=== PATIENT | male | born 1970 | race Caucasian/White ===

== ENCOUNTER 2019-07-30 15:08 | Emergency (ER) | payer OTHER, SELFPAY ==
[2019-07-30 15:09] VITALS: BP 123/90; PULSE 102; RESP 18; TEMP 36.8; O2SAT 96; BMI 27.9
--- NOTE | 2019-07-30 15:24 | ED.DCSUM_ITS ---
History of Present Illness Chief Complaint: Other, Pain/Inj Detail of Chief Complaint: Swelling lower lip right side Informant: Patient, Family Onset: Days - Onset July 27 Context: Sudden Onset Timing: Continuous Quality: Pain and swelling Location: Lower lip right side and face Current Severity: Moderate Maximum Severity: Severe Worsened by: Worse with palpation Relieved by: Nothing Associated Symptoms: Pain and swelling no constitutional symptoms Narrative: Patient is a 48-year-old male with history of diabetes who presents because of swelling of his lower lip and right side of his face. Onset was July 27. He states he had a cold sore. He was seen yesterday at outside facility and placed on clindamycin 300 mg. He states he has been compliant with the medication. He denies fever, chills or night sweats. He denies inability to open or close his mouth. He does report change in voice because of the swelling. He is able to swallow and has no breathing issues. He states his blood sugars have not been elevated. He denies symptoms of hyperglycemia. He denies history rheumatic fever, heart murmur, SBE or being immune suppressed. Prior similar symptoms: No Recent Illness/Hospitalization: Yes - Past Medical History (1) History of diabetes mellitus Status: Acute Past Medical History - Allergies and Home Meds Allergies/Adverse Reactions: Allergies morphine Allergy (Verified 07/30/19 15:11) Emmy Primary Care Physician: NOT,DEFINED [NON-STAFF] - Prior records reviewed: No Surgical History: no surgical history Lives: With Family Smoking Status: Current every day smoker Alcohol: None Drugs: None Review of Systems General: Denies: Chills, Fever, Malaise, Sweats Eyes: Denies: Visual changes - bilaterally, Blurred Vision - bilaterally ENT: Reports: - - Pain of lower lip as previously described. Denies: Bilateral ear pain, Rhinorrhea, Sore throat Cardiovascular: Denies: Chest pain, Palpitations Respiratory: Denies: Dyspnea, Cough, Dyspnea on exertion Gastrointestinal: Denies: Nausea, Vomiting, Diarrhea Genitourinary: Denies: Dysuria, Hematuria, Frequency Musculoskeletal: Denies: Myalgias, Arthralgias, Neck pain, Back pain, Swelling, Extremity Pain, -, - Skin: Reports: Rash, Abscess, Wounds Neurological: Denies: Headache, Weakness, Numbness Hematologic: Denies: Easy bruising, Easy bleeding Allergy: Reports: Swelling of the mouth. Denies: Uticaria, Swelling of the tongue Physical Exam Vital Signs/Narrative: Vital Signs Temp Pulse Resp BP Pulse Ox 07/30/19 15:09 98.2 F 102 H 18 123/90 H 96 Inital Vital Signs reviewed: Yes General: Well nourished, Well developed, Acute Distress Head: Normocephalic, Atraumatic Eyes: Perrl, EOMI. Negative for: Pale conjunctiva, Scleral icterus ENT: Moist mucous membranes, No rhinorrhea, TM's clear, - - Ashmore of the right lower lip and right side of the face. There is significant pain with palpation. Believe there is a palpable abscess. Will place a right inferior orbital nerve block then attempt needle aspirate to confirm if there is or is not fluid. Neck: Supple, Nontender, No lymphadenopathy, No JVD, - - Trachea is midline. There is no stridor. There is no carotid bruit. Cardiovascular: Regular rate, Regular rhythm, No murmurs, Normal S1, Normal S2 Respiratory: No distress, CTA bilaterally, Chest nontender Extremities: Nontender, No edema Skin: Normal color, No Trauma, Rash. Negative for: Cyanosis, Diaphoresis, Jaundice Neurological: Alert, Oriented x3, Cranial nerves II-XII grossly intact, Normal Strength, Normal Sensation Psychological: Normal affect, Normal Mood Diagnostic/Tx/Re-eval - Medical Decision Making We will assess BGT since he is diabetic. Inferior alveolar nerve block and further assessment of infection once patient is appropriately anesthetized. Dry tap on needle aspirate. Patient was instructed to continue taking clindamycin. His father for me is only taken 2 doses of the antibiotics. He was offered pain medicine, which she declined. He requested a work excuse for 3 days. He was informed I would gladly write down limitations. Procedures Procedure(s): Right inferior alveolar nerve block was placed. Needle aspirate was undertaken. There was no return of fluid. Suspect patient has infection due to cold sore. There is no evidence of facial cellulitis. There is no evidence of lice involving the buccal surface. ED Disposition - Plan for ED Patient: Disposition: Home or Assisted Living Diagnosis: Cold sore, Cellulitis of lip Instructions: CELLULITIS, Facial Referrals: NOT,DEFINED [NON-STAFF] - Additional Instructions: Keep appointment with your doctor scheduled for this week.
[2019-07-30 16:50] VITALS: BP 123/77; PULSE 104; RESP 16; O2SAT 99
== END 2019-07-30 16:50 | disposition home or self-care (01) ==
PROVIDERS: Emergency Provider Emergency Medicine; Family Provider Family Medicine; PCP Family Medicine
DX: B00.1 Herpesviral vesicular dermatitis (principal); K13.0 Diseases of lips; E11.9 Type 2 diabetes mellitus without complications; F17.200 Nicotine dependence, unspecified, uncomplicated; Z79.84 Long term (current) use of oral hypoglycemic drugs; Z79.899 Other long term (current) drug therapy
CPT/HCPCS: 10021; 99282